=== PATIENT | female | born 1995 | race Caucasian/White ===

== ENCOUNTER → 2018-03-15 09:02 | Outpatient (CLI) | payer OTHER | END | disposition home or self-care (01) | LOC: D.CN 09:00 | DX: R00.2 Palpitations (principal) ==

== ENCOUNTER → 2018-03-16 12:27 | Outpatient (CLI) | payer OTHER ==
[2018-03-16 13:34] LABS: UDS - AMPHET NEGATIVE QUAL (NEGATIVE); UDS - BARB NEGATIVE QUAL (NEGATIVE); UDS - BENZO NEGATIVE QUAL (NEGATIVE); UDS - COCAINE NEGATIVE QUAL (NEGATIVE); UDS - OPIATE NEGATIVE QUAL (NEGATIVE); UDS - PCP NEGATIVE QUAL (NEGATIVE); UDS - THC NEGATIVE QUAL (NEGATIVE)
[2018-03-16 13:55] LABS: APPEARANCE CLEAR (CLEAR); BILIRUBIN NEGATIVE (NEGATIVE); COLOR STRAW (YELLOW); GLUCOSE NEGATIVE (NEGATIVE); KETONE NEGATIVE (NEGATIVE); NITRITE NEGATIVE (NEGATIVE); PROTEIN NEGATIVE (NEGATIVE); SPECIFIC GRAVITY 1.005 (1.005-1.020); UROBILINOGEN NORMAL (NORMAL)
[2018-03-16 14:00] LABS: BACTERIA FEW /hpf (NONE SEEN); EPITHELIAL CELLS RARE /hpf (0-5); WHITE CELLS - URINE RARE /hpf (0-5)
== END | disposition home or self-care (01) ==
LOC: D.LDO 12:27
PROVIDERS: Obstetrics & Gynecology
DX: O26.892 Other specified pregnancy related conditions, second trimester (principal); Z3A.20 20 weeks gestation of pregnancy

== ENCOUNTER 2018-04-02 18:55 | Outpatient (CLI) | payer OTHER ==
[2018-04-02 20:08] LABS: APPEARANCE CLEAR (CLEAR); BILIRUBIN NEGATIVE (NEGATIVE); COLOR YELLOW (YELLOW); GLUCOSE NEGATIVE (NEGATIVE); KETONE NEGATIVE (NEGATIVE); NITRITE NEGATIVE (NEGATIVE); PROTEIN NEGATIVE (NEGATIVE); SPECIFIC GRAVITY 1.015 (1.005-1.020); UROBILINOGEN NORMAL (NORMAL)
== END 2018-04-02 20:25 | disposition home or self-care (01) ==
LOC: D.LDO 18:55
PROVIDERS: Obstetrics & Gynecology
DX: O26.892 Other specified pregnancy related conditions, second trimester (principal); Z3A.22 22 weeks gestation of pregnancy

== ENCOUNTER → 2018-04-06 14:52 | Outpatient (CLI) | payer OTHER ==
[~2018-04-06 14:52] MED LIST: AUGMENTIN 875-11 TAB PO; FLUTICASONE PRO16 GM NASAL; PEPCID AC20 MG PO; PRENAVITE1 TAB PO
== END | disposition home or self-care (01) ==
LOC: D.RAD 14:30
DX: M25.571 Pain in right ankle and joints of right foot (principal)

== ENCOUNTER 2018-04-21 16:35 | Emergency (ER) | payer OTHER ==
[~2018-04-21] VITALS: Ht 170.2 cm; Wt 88.2 kg
[2018-04-21 16:45] VITALS: BP 119/75; Ht 170.2 cm; Wt 88.2 kg
[2018-04-21] MEDS ORDERED: PEPCID AC20 MG PO (16:46)
[2018-04-21] MEDS ORDERED: PRENAVITE1 TAB PO (16:47)
[2018-04-21] MEDS ORDERED: FLUTICASONE PRO16 GM NASAL (17:32)
[2018-04-21] MEDS ORDERED: AUGMENTIN 875-11 TAB PO (17:32)
== END 2018-04-21 17:43 | disposition home or self-care (01) ==
LOC: D.ER 16:35
DX: H65.192 Other acute nonsuppurative otitis media, left ear (principal); O26.892 Other specified pregnancy related conditions, second trimester; Z3A.26 26 weeks gestation of pregnancy

== ENCOUNTER → 2018-04-30 11:58 | Outpatient (CLI) | payer OTHER ==
[2018-04-21 16:45] VITALS: BMI 30.4
[2018-04-30 13:14] LABS: UDS - AMPHET NEGATIVE QUAL (NEGATIVE); UDS - BARB NEGATIVE QUAL (NEGATIVE); UDS - BENZO NEGATIVE QUAL (NEGATIVE); UDS - COCAINE NEGATIVE QUAL (NEGATIVE); UDS - OPIATE NEGATIVE QUAL (NEGATIVE); UDS - PCP NEGATIVE QUAL (NEGATIVE); UDS - THC NEGATIVE QUAL (NEGATIVE)
[2018-04-30 13:38] LABS: APPEARANCE CLEAR (CLEAR); BILIRUBIN NEGATIVE (NEGATIVE); COLOR STRAW (YELLOW); GLUCOSE NEGATIVE (NEGATIVE); KETONE NEGATIVE (NEGATIVE); NITRITE NEGATIVE (NEGATIVE); PROTEIN NEGATIVE (NEGATIVE); SPECIFIC GRAVITY 1.005 (1.005-1.020); UROBILINOGEN NORMAL (NORMAL)
== END | disposition home or self-care (01) ==
LOC: D.LDO 11:58
PROVIDERS: Obstetrics & Gynecology
DX: O26.899 Other specified pregnancy related conditions, unspecified trimester (principal); Z3A.00 Weeks of gestation of pregnancy not specified

== ENCOUNTER → 2018-05-13 14:17 | Outpatient (CLI) | payer OTHER ==
[2018-04-21 16:45] VITALS: BMI 30.4
[2018-05-13 14:47] LABS: APPEARANCE CLEAR (CLEAR); BILIRUBIN NEGATIVE (NEGATIVE); COLOR STRAW (YELLOW); GLUCOSE NEGATIVE (NEGATIVE); KETONE NEGATIVE (NEGATIVE); NITRITE NEGATIVE (NEGATIVE); PROTEIN NEGATIVE (NEGATIVE); UROBILINOGEN NORMAL (NORMAL)
== END | disposition home or self-care (01) ==
LOC: D.LDO 14:17
PROVIDERS: Obstetrics & Gynecology
DX: O26.899 Other specified pregnancy related conditions, unspecified trimester (principal); Z3A.00 Weeks of gestation of pregnancy not specified

== ENCOUNTER → 2018-06-26 22:03 | Outpatient (CLI) | payer OTHER ==
[2018-04-21 16:45] VITALS: BMI 30.4
[2018-06-26 22:54] LABS: APPEARANCE CLEAR (CLEAR); BILIRUBIN NEGATIVE (NEGATIVE); COLOR YELLOW (YELLOW); GLUCOSE NEGATIVE (NEGATIVE); KETONE NEGATIVE (NEGATIVE); NITRITE NEGATIVE (NEGATIVE); PROTEIN NEGATIVE (NEGATIVE); SPECIFIC GRAVITY 1.015 (1.005-1.020); UROBILINOGEN NORMAL (NORMAL)
[2018-06-26 22:55] LABS: BACTERIA FEW /hpf (NONE SEEN); EPITHELIAL CELLS OCC /hpf (0-5); RED CELLS - URINE OCC /hpf (0-5); WHITE CELLS - URINE 0-5 /hpf (0-5)
== END | disposition home or self-care (01) ==
LOC: D.LDO 22:03
PROVIDERS: ATTEND Obstetrics & Gynecology
DX: O26.853 Spotting complicating pregnancy, third trimester (principal); Z3A.34 34 weeks gestation of pregnancy

== ENCOUNTER → 2018-07-14 19:53 | Outpatient (CLI) | payer OTHER ==
[2018-04-21 16:45] VITALS: BMI 30.4
== END | disposition home or self-care (01) ==
LOC: D.LDO 19:53
PROVIDERS: ATTEND Obstetrics & Gynecology
DX: O36.8130 Decreased fetal movements, third trimester, not applicable or unspecified (principal); Z3A.37 37 weeks gestation of pregnancy; O26.853 Spotting complicating pregnancy, third trimester

== ENCOUNTER → 2018-07-18 04:46 | Outpatient (CLI) | payer OTHER ==
[2018-04-21 16:45] VITALS: BMI 30.4
[~2018-07-18 04:46] MED LIST changes: +ACETAMINOPHEN500 M1 PO; +CYCLOBENZAPRINE10 MG PO; +HYDROCODON-ACE1 EAC7 PO; +IBUPROFEN600 MG PO
[2018-07-22 15:54] VITALS: BMI 30.3
== END | disposition home or self-care (01) ==
LOC: D.LDO 04:46
PROVIDERS: ATTEND Obstetrics & Gynecology
DX: O26.893 Other specified pregnancy related conditions, third trimester (principal); Z3A.37 37 weeks gestation of pregnancy

== ENCOUNTER 2018-07-22 10:26 | Inpatient (IN) | payer OTHER ==
[~2018-07-22] VITALS: Ht 170.2 cm; Wt 87.5 kg
[~2018-07-22 10:26] MED LIST changes: -ACETAMINOPHEN500 M1 PO; -CYCLOBENZAPRINE10 MG PO; -HYDROCODON-ACE1 EAC7 PO; -IBUPROFEN600 MG PO
[2018-07-22] MEDS ORDERED: CYCLOBENZAPRINE10 MG PO (10:48)
[2018-07-22] MEDS ORDERED: ACETAMINOPHEN500 M1 PO (10:48)
[2018-07-22 15:54] VITALS: BP 122/63; Ht 170.2 cm; Wt 87.5 kg
[2018-07-22 16:13] LABS: HEMATOCRIT 39.1 % (36.0-48.0); HEMOGLOBIN 13.5 g/dL (12-16); MCH 29.1 pg (26.0-34.0); MCHC 34.5 g/dL (31.0-37.0); MCV 84.3 fL (80.0-100.0); MEAN PLATELET VOLUME 10.6 fL (7.4-10.4); RBC 4.64 10x6/uL (4.00-5.40); RDW 12.9 % (11.5-14.5); WBC 9.6 10x3/uL (4.8-10.8)
[2018-07-23 06:52] LABS: BASOPHILS 0.2 % (0-2); EOSINOPHILS 0.2 % (0-7); HEMOGLOBIN 12.1 g/dL (12-16); IMMATURE GRANULOCYTES 0.4 % (0-5); LYMPHOCYTES 12.8 % (15-50); MCH 28.3 pg (26.0-34.0); MCHC 33.6 g/dL (31.0-37.0); MCV 84.3 fL (80.0-100.0); MEAN PLATELET VOLUME 10.8 fL (7.4-10.4); MONOCYTES 11.1 % (2-11); NEUTROPHILS 75.3 % (40-80); PLATELET COUNT 220 10x3/uL (130-400); RBC 4.27 10x6/uL (4.00-5.40); RDW 12.9 % (11.5-14.5)
[2018-07-23 06:57] LABS: WBC 12.9 10x3/uL (4.8-10.8)
[2018-07-23 08:15] VITALS: BP 119/62
[2018-07-23 20:02] VITALS: BP 110/62
[2018-07-24 04:52] VITALS: BP 122/62
[2018-07-24 08:15] LABS: RAPID PLASMA REAGIN Non Reactive (Non Reactive)
[2018-07-24 10:15] VITALS: BP 102/62
[2018-07-24] MEDS ORDERED: IBUPROFEN600 MG PO (14:05)
[2018-07-24] MEDS ORDERED: HYDROCODON-ACE1 EAC7 PO (14:06)
== END 2018-07-24 16:00 | disposition home or self-care (01) | DRG 806 ==
LOC: D.LDO 10:26 → D.LD 15:21
PROVIDERS: ADMIT Obstetrics & Gynecology; ATTEND Obstetrics & Gynecology
PROC: 10E0XZZ Delivery of Products of Conception, External Approach (ICD-10-PCS; principal; 2018-07-23)
PROC: 0HQ9XZZ Repair Perineum Skin, External Approach (ICD-10-PCS; 2018-07-23)
DX: O99.344 Other mental disorders complicating childbirth (principal); O71.4 Obstetric high vaginal laceration alone; Z37.0 Single live birth; Z3A.38 38 weeks gestation of pregnancy; Z87.891 Personal history of nicotine dependence

== ENCOUNTER 2018-11-10 14:00 | Emergency (ER) | payer OTHER ==
[~2018-11-10] VITALS: Ht 170.2 cm; Wt 70.5 kg
[~2018-11-10 14:00] MED LIST changes: +ACETAMINOPHEN500 M1 PO; +CYCLOBENZAPRINE10 MG PO; +HYDROCODON-ACE1 EAC7 PO; +IBUPROFEN600 MG PO
[2018-11-10 14:11] VITALS: Ht 170.2 cm; Wt 70.5 kg
[2018-11-10 14:32] LABS: BASOPHILS 0.7 % (0-2); EOSINOPHILS 2.4 % (0-7); HEMATOCRIT 42.5 % (36.0-48.0); HEMOGLOBIN 14.4 g/dL (12-16); IMMATURE GRANULOCYTES 0.1 % (0-5); LYMPHOCYTES 36.5 % (15-50); MCH 29.5 pg (26.0-34.0); MCHC 33.9 g/dL (31.0-37.0); MCV 87.1 fL (80.0-100.0); MEAN PLATELET VOLUME 9.7 fL (7.4-10.4); MONOCYTES 9.2 % (2-11); NEUTROPHILS 51.1 % (40-80); RBC 4.88 10x6/uL (4.00-5.40); RDW 13.9 % (11.5-14.5); WBC 7.2 10x3/uL (4.8-10.8)
[2018-11-10 14:34] LABS: PLATELET COUNT 265 10x3/uL (130-400)
[2018-11-10 14:48] LABS: APPEARANCE CLEAR (CLEAR); BILIRUBIN NEGATIVE (NEGATIVE); COLOR YELLOW (YELLOW); EPITHELIAL CELLS 0-5 /hpf (0-5); GLUCOSE NEGATIVE (NEGATIVE); KETONE NEGATIVE (NEGATIVE); NITRITE NEGATIVE (NEGATIVE); PROTEIN NEGATIVE (NEGATIVE); SPECIFIC GRAVITY 1.005 (1.005-1.020); UROBILINOGEN NORMAL (NORMAL); WHITE CELLS - URINE NSEEN /hpf (0-5)
[2018-11-10 14:49] LABS: HCG URINE NEGATIVE (NEGATIVE)
[2018-11-10 15:48] VITALS: BP 126/60
== END 2018-11-10 15:42 | disposition home or self-care (01) ==
LOC: D.ER 14:00
PROVIDERS: Emergency Medicine
DX: N93.9 Abnormal uterine and vaginal bleeding, unspecified (principal)

== ENCOUNTER → 2019-08-02 12:31 | Outpatient (CLI) | payer OTHER ==
[2018-11-10 14:11] VITALS: BMI 24.3
== END | disposition home or self-care (01) ==
LOC: D.US 12:31
PROVIDERS: ATTEND Obstetrics & Gynecology
DX: N63.10 Unspecified lump in the right breast, unspecified quadrant (principal)